=== PATIENT | male | born 1980 | race Caucasian/White ===

== ENCOUNTER → 2019-05-31 | Outpatient (CLI) | payer OTHER ==
--- NOTE | 2019-06-01 10:39 | REP ---
HISTORY: Cough. There is a patchy opacity in the left lower lobe with minimal left CP angle blunting. The right lung is clear. The heart is not enlarged. The osseous structures are normal. IMPRESSION: Left lower lobe pneumonia and possible tiny left pleural effusion. Electronically Signed by Neri Merino DO 06/01/2019 11:24 A
== END ==
LOC: M LRY 19:04 → EDBD 19:04
PROVIDERS: ATTEND Physician Assistant
DX: J18.9 Pneumonia, unspecified organism (principal)
CPT/HCPCS: 71046; 87804; G0463

== ENCOUNTER → 2019-07-20 | Outpatient (CLI) | payer OTHER ==
--- NOTE | 2019-07-20 11:31 | REP ---
Clinical: Shortness of breath . Comparison: 06/17/2019 . Technique: PA and lateral. Findings: The mediastinum and cardiac silhouette are normal. The lung rangel are clear and without acute consolidation, effusion, or pneumothorax. Previous left lower lobe consolidation resolved. The skeletal structures are intact and normal. Impression: 1. No acute cardiopulmonary process. Previous left lower lobe consolidation resolved. Electronically Signed by Jv Tafoya MD 07/20/2019 11:22 A
== END ==
LOC: M LRY 11:10
PROVIDERS: ATTEND Nurse Practitioner Family
DX: R06.02 Shortness of breath (principal)

== ENCOUNTER → 2019-12-06 | Outpatient (CLI) | payer OTHER ==
--- NOTE | 2019-12-06 12:04 | REP ---
CT ABDOMEN AND PELVIS WITHOUT IV OR ORAL CONTRAST: RENAL STONE PROTOCOL. HISTORY: Left flank pain. No comparison study. CT FINDINGS: Digital preliminary client service consultant radiograph is unremarkable. The lung bases are clear on axial CT images. The liver is normal in size, homogeneous in texture. No focal splenic lesion is appreciated. There is no evidence of adrenal abnormality on either side. Small contracted appearing gallbladder is seen. No abnormality is noted in the pancreas. No retroperitoneal mass or adenopathy is seen. Small and large bowel loops are unremarkable in the abdomen and pelvis. A normal appendix is noted in the right lower quadrant. Urinary bladder and seminal vesicles are unremarkable. There are dystrophic calcifications in the prostate. There is no evidence of hydronephrosis on either side. No intrarenal calculus or mass lesion is observed. The kidneys appear morphologically normal. No ureteral stone is seen. No abdominal wall defect or bony destructive lesion is appreciated. IMPRESSION: Dystrophic calcifications in the prostate. Otherwise normal CT study abdomen and pelvis. No bladder or ureteral calculus seen. No evidence of hydronephrosis. Electronically Signed by Ke Boland MD 12/06/2019 12:47 P
== END ==
LOC: M RAD 09:37
PROVIDERS: ATTEND Physician Assistant
DX: R10.9 Unspecified abdominal pain (principal)

== ENCOUNTER → 2020-04-22 | Outpatient (CLI) | payer OTHER ==
[~2020-04-22] MED LIST: E-Z-GAS II EFFERVESCENT PACKET (SODIUM BICARB./CITRIC ACID/SIMETHICONE) As Ordered ONE; E-Z-HD 98% w/w 340GM SUSP BTL As Ordered ONE; E-Z-PAQUE 96% w/w SUSP 176GM BTL As Ordered ONE
--- NOTE | 2020-06-12 15:21 | REP ---
AIR CONTRAST ESOPHAGRAM: The procedure was performed under the direct supervision of Dr. Boland. The images were reviewed with Dr. Boland. FINDINGS: A single view PA chest x-ray is submitted as a specimen preparation assistant film. The superior mediastinal structures are midline. The heart size is within normal limits. The lungs are clear. Liquid barium and gas-producing granules were given in the erect position as well as liquid barium in the prone oblique positions in order to perform a double contrast esophagram examination. The oral and pharyngeal stages of deglutition are unremarkable. Esophageal transport is prompt and efficient and there is no esophagitis, stricture or mucosal ring. There is a small sliding type hiatal hernia. There is gastroesophageal reflux demonstrated to the level of the thoracic inlet. IMPRESSION: There is a small sliding type hiatal hernia. There is gastroesophageal reflux demonstrated to the level of the thoracic inlet. 0.8 minutes of fluoroscopy time was utilized for this procedure. [facility]
== END ==
LOC: M RAD 08:30
PROVIDERS: ATTEND Student in an Organized Health Care Education/Training Program
DX: K21.9 Gastro-esophageal reflux disease without esophagitis (principal); K44.9 Diaphragmatic hernia without obstruction or gangrene; R13.10 Dysphagia, unspecified; K65.2 Spontaneous bacterial peritonitis